=== PATIENT | female | born 1935 | race Caucasian/White ===

== ENCOUNTER 2016-05-24 17:48 | Emergency (ER) | payer MEDICARE, BC ==
--- NOTE | ~2016-05-24 | CR72 ---
[facility] A [facility] of [facility] RADIOLOGY TEXT RESULTS PATIENT: DM MAGALLON LOCATION: [facility] : 34 UNIT #: [id number] AGE: [address]: Lauren Lock MD SEX: F ORDER DR: [id number] [facility] [address] [place], [place] [address] [id number] E MR#: [id number] Acc #: [id number] NAME: DM MAGALLON : 1935 SEX: F STUDY DATE/TIME: 05/24/2016 17:23 UNIT: [facility] ROOM: STUDY DESCRIPTION: CR Chest Single View Portable Attending Physician: Lauren Lock M.D. Ordering Physician: Dorian Bearden M.D. Primary Care Physician: No Primary Care Physician MEDICAL IMAGING REPORT This report is preliminary unless electronic signature is present EXAM Portable chest 05/24 COMPARISON 02/04/2016 HISTORY Cough beginning today. FINDINGS An AP view of the chest obtained. The cardiac size is stable. Vascular pattern remains normal and the lungs are clear. CONCLUSION 1. Stable chest. No active disease. Dictated by... Rah Mcgill M.D. THIS IS AN ELECTRONICALLY VERIFIED REPORT Rah Mcgill M.D. at 05/25/2016 10:35 AM ЮЛИЯ/ermias TD: 05/24/2016 23:12 JOB #: [id number] MEDICAL IMAGING REPORT Page 1 of 1 COPY
--- NOTE | ~2016-05-24 | EKG ---
PATIENT: DM MAGALLON UNIT #: [id number] Ventricular Rate: 56 BPM Atrial Rate: 56 BPM P-R Interval: 192 ms QRS Duration: 102 ms Q-T Interval: 448 ms QTC Calculation(Bezet): 432 ms P [place]: 29 degrees Calculated R [place]: -6 degrees Calculated T [place]: 51 degrees Diagnosis Line: Sinus bradycardia Diagnosis Line: Septal infarct , age undetermined Diagnosis Line: Abnormal ECG Diagnosis Line: When compared with ECG of 18-FEB-2016 19:21, Diagnosis Line: Septal infarct is now Present Diagnosis Line: Confirmed by MO SCOTT MD ([id number]) on 05/26/2016 Diagnosis Line: 9:31:37 AM INTERPRETING MD: SONIA ARRIAGA
--- NOTE | ~2016-05-24 | CT17 ---
[facility] A Service of [facility] & [facility] RADIOLOGY TEXT RESULTS PATIENT: DM MAGALLON LOCATION: [facility] : 34 UNIT #: [id number] AGE: [address]: Lauren Lock MD SEX: F ORDER DR: [id number] [facility] [address] [place], [place] [address] [id number] E MR#: [id number] Acc #: [id number] NAME: DM MAGALLON : 1935 SEX: F STUDY DATE/TIME: 05/24/2016 19:11 UNIT: [facility] ROOM: STUDY DESCRIPTION: CT Angio Head Attending Physician: Lauren Lock M.D. Ordering Physician: Dorian Bearden M.D. Primary Care Physician: No Primary Care Physician MEDICAL IMAGING REPORT This report is preliminary unless electronic signature is present EXAM CT of the brain with CT angiography of the intracranial vasculature. HISTORY SUPPLIED Right eye blurred vision, pain, pressure after coughing. Symptoms since 05/23/2016. TECHNIQUE Transaxial imaging of the brain and skull base was performed with an IV bolus of contrast media. CT angiography was performed with 3-D MIP multiplanar reconstructions as well as 2-D and 3-D renderings of the skull base and intracranial vasculature. This CT exam was performed with one or more of the following radiation dose reduction techniques: automatic exposure control, adjustment of mA and/or kV according to patient size, and iterative reconstruction. FINDINGS There is mild atherosclerotic plaque in the carotid siphons. There is no evidence of significant carotid stenosis. The right A1 and left A1 segments are patent. The right side is somewhat smaller. There is symmetric filling of the middle cerebral artery territories. The right posterior cerebral is supplied by the anterior circulation. Patient has a patent [place] of [place]. Left posterior cerebral and right posterior cerebral fill symmetrically. Anterior cerebral artery fills symmetrically. No evidence of aneurysm. No evidence of vascular malformation. Posterior circulation is normal. No evidence of abrupt vascular cutoff. CONCLUSION Essentially normal CTA intracranially. Patient does have a hypoplastic right A1 segment, but it is patent. There is a patent [place] of [place] with persistent circulation of the right posterior cerebral. Exam is otherwise unremarkable. [facility] A Service of [facility] & [facility] RADIOLOGY TEXT RESULTS PATIENT: DM MAGALLON LOCATION: [facility] : 34 UNIT #: [id number] AGE: [address]: Lauren Lock MD SEX: F ORDER DR: Dictated by... Rah Mcgill M.D. THIS IS AN ELECTRONICALLY VERIFIED REPORT Rah Mcgill M.D. at 05/25/2016 10:35 AM Fanny TD: 05/25/2016 05:31 JOB #: [id number] MEDICAL IMAGING REPORT Page 1 of 1 COPY
--- NOTE | ~2016-05-24 | CT71 ---
[facility] A Service of [facility] RADIOLOGY TEXT RESULTS PATIENT: DM MAGALLON LOCATION: [facility] : 34 UNIT #: [id number] AGE: [address]: Lauren Lock MD SEX: F ORDER DR: [id number] [facility] [address] [place], [place] [address] [id number] E MR#: [id number] Acc #: [id number] NAME: DM MAGALLON : 1935 SEX: F STUDY DATE/TIME: 05/24/2016 19:05 UNIT: [facility] ROOM: STUDY DESCRIPTION: CT Head Wo Contrast Attending Physician: Lauren Lock M.D. Ordering Physician: Dorian Bearden M.D. Primary Care Physician: Primary Care Physician No MEDICAL IMAGING REPORT This report is preliminary unless electronic signature is present EXAM CT of the brain without contrast media, 05/24/2016 HISTORY Right eye pain and blurry vision beginning 05/23/2016. TECHNIQUE Transaxial imaging of the brain was performed without contrast media: This CT exam was performed with one or more of the following radiation dose reduction techniques: automatic exposure control, adjustment of mA and/or kV according to patient size, and iterative reconstruction. FINDINGS Ventricular size and configuration is normal. No intra or extraaxial mass lesions, fluid collections or mass effect are seen. No focal areas of low attenuation or hemorrhage are identified. There is atherosclerotic plaque in the carotid siphons. Bone windows are reviewed. There is some motion degradation. No fractures are identified. Globes appear symmetric. No retrobulbar masses or fluid collections are identified. CONCLUSION Age-appropriate atrophy. Atherosclerotic calcifications in the carotid siphons. Negative noncontrast CT of the brain. Dictated by... Rah Mcgill M.D. THIS IS AN ELECTRONICALLY VERIFIED REPORT Rah Mcgill M.D. at 05/25/2016 10:35 AM ЮЛИЯ/iglesia [facility] A Service of [facility] RADIOLOGY TEXT RESULTS PATIENT: SHERITA,OPAL LOCATION: [facility] : 34 UNIT #: [id number] AGE: [address]: Lauren Lock MD SEX: F ORDER DR: TD: 05/25/2016 04:24 JOB #: [id number] MEDICAL IMAGING REPORT Page 1 of 1 COPY
[2016-05-24 17:32] LABS: BASOPHIL% 0.3 % (0-2.5); DIFF IND NO; EOSINOPHIL# 0.2 X10e3 (0-0.7); EOSINOPHIL% 2.7 % (0.0-7.0); HEMATOCRIT 38.7 % (35.0-45.0); HEMOGLOBIN 12.4 gm/dL (12.0-16.0); LYMPHOCYTE# 2.1 X10e3 (1.0-3.5); LYMPHOCYTE% 30.7 % (17.0-45.0); MEAN CORPUSCULAR HEMOGLOBIN 27.5 PG (28-34); MEAN PLATELET VOLUME 8.5 FL (6.5-11.5); MONOCYTE# 0.7 X10e3 (0-1.0); MONOCYTE% 10.9 % (3.0-12.0); NEUTROPHIL# 3.7 X10e3 (1.5-7.1); NEUTROPHIL% 55.4 % (40-75); PLATELET COUNT 201 X10e3 (140-420); RED CELL DISTRIBUTION WIDTH 15.3 % (11.0-15.5); WHITE BLOOD COUNT 6.8 X10e3 (4.0-10.5)
[2016-05-24 17:46] LABS: INR 1.1; PROTHROMBIN TIME (PATIENT) 11.3 SECONDS (9.6-11.5)
[~2016-05-24 17:48] MED LIST: FIORINAL 50-321 EACH PO; LISINOPRIL20 MG PO; MOBIC15 MG PO; PERCOCET 5-3251 TAB PO
[2016-05-24 17:51] LABS: ALBUMIN SERUM 4.5 g/dL (3.5-5.0); ALKALINE PHOSPHATASE 70 U/L (32-92); ALT (SGPT) 6 U/L (10-40); AST (SGOT) 23 U/L (10-42); BLOOD UREA NITROGEN 31 mg/dL (9-23); BUN/CREATININE RATIO 34.44; CALCIUM SERUM 9.2 mg/dL (8.4-10.2); CARBON DIOXIDE 26 mmol/L (22-31); CHLORIDE 106 mmol/L (100-111); CREATININE SERUM 0.9 mg/dL (0.6-1.4); GLOM FILT RATE Estimated ABOVE60 mL/min (>60); GLUCOSE FASTING 93 mg/dL (70-110); POTASSIUM 4.2 mmol/L (3.5-5.1); PROTEIN TOTAL SERUM 7.6 g/dL (6.0-8.3); SODIUM 140 mmol/L (135-145)
[2016-05-24 17:57] LABS: POC - CKMB 3.2 ng/mL (0.0-7.9); POC - TROPONIN <0.05 ng/mL (<=0.05)
[2016-05-24 18:11] LABS: INFLUENZA A NEG (NEG); INFLUENZA B NEG (NEG)
== END 2016-05-24 22:03 | disposition home or self-care (01) ==
LOC: CED 17:48
PROVIDERS: Emergency Medicine
DX: H11.31 Conjunctival hemorrhage, right eye (principal)
CPT/HCPCS: 36415; 70450; 70496; 71010; 80053; 82553; 84484; 85025; 85610; 85730; 87804; 93005; 99284; Q9967

== ENCOUNTER → 2016-10-11 | Outpatient (CLI) | payer MEDICARE, BC ==
--- NOTE | ~2016-10-11 | CT4 ---
[facility] A Service of [facility] RADIOLOGY TEXT RESULTS PATIENT: DM MAGALLON LOCATION: [facility] : 34 UNIT #: [id number] AGE: [address]: JULIO ST SEX: F ORDER DR: [id number] [facility] [address] [place], [place] [address] [id number] O MR#: [id number] Acc #: [id number] NAME: DM MAGALLON : 1935 SEX: F STUDY DATE/TIME: 10/11/2016 12:19 UNIT: [facility] ROOM: STUDY DESCRIPTION: CT Abd and Pelv Wo Cont Attending Physician: Julio St M.D. Referring Physician: Julio St M.D. Ordering Physician: Physician Non-Staff Primary Care Physician: Julio St M.D. MEDICAL IMAGING REPORT This report is preliminary unless electronic signature is present EXAM CT of the abdomen and pelvis without contrast INDICATION Recurrent nephrolithiasis. The patient does have a history of kidney stones. She reports right flank pain for [address] images were obtained from the dome of the diaphragm through the symphysis pubis. No oral or intravenous contrast material was administered. This CT exam was performed with one or more of the following radiation dose reduction techniques: automatic exposure control, adjustment of mA and/or kV according to patient size, and iterative reconstruction. FINDINGS The patient is noted have some stable scarring within the right middle lobe. Stomach and proximal small bowel are within normal limits as are the adrenal glands, spleen and liver. Pancreas is mildly atrophic. There is some higher density material seen within the gallbladder. It does not layer dependently and I am uncertain if this reflects some stone or sludge. It was present in February 2016 and at that time the patient underwent gallbladder ultrasound which showed no evidence of a mass within the gallbladder. No renal stones are identified on the right. The patient does have a cyst within the right kidney. There is dilatation of the right renal pelvis without benton hydronephrosis and it may simply reflect a prominent extrarenal pelvis. The appearance however is stable when compared to February 2016. Left renal cysts are also identified. I am not convinced I can see any urinary stones on either side. No distal STS. [facility] A Service of [facility] & [facility] RADIOLOGY TEXT RESULTS PATIENT: DM MAGALLON LOCATION: [facility] : 34 UNIT #: [id number] AGE: [address]: JULIO ST SEX: F ORDER DR: ureteral or bladder stones are seen. no free fluid or adenopathy is seen within the abdomen. There is no evidence of mechanical bowel obstruction. The uterus is surgically absent, the urinary bladder appears unremarkable. There is some colonic diverticula wop any convincing evidence of diverticulitis. The patient does have some mild stranding seen within the right paracolic gutter and right lower quadrant omentum. This is of uncertain clinical significance. Adjacent bowel does not appear particularly thick-walled. I am unable to identify the patient's appendix and I do not see a dilated tubular structure within this area to suggest acute appendicitis. No aggressive osseous abnormalities are seen. IMPRESSION 1. No urinary stones are identified. No distal ureteral or bladder stones are seen. There is no hydronephrosis. The patient has a mildly prominent extrarenal pelvis on the right but again, there is no evidence of hydronephrosis. 2. Bilateral renal cysts. 3. The patient has some ill-defined stranding seen within the omentum in the right lower quadrant. Finding is nonspecific and may reflect some mild inflammation of the mesentery in this area. Segmental omental infarction could also have this appearance. The adjacent bowel does not appear thick-walled. The patient's a[x is not visualized but I do not see a dilated tubular structure within the right lower quadrant to suggest acute appendicitis. 4. High-density material identified within the gallbladder. This does not layer dependently but the patient did undergo a gallbladder ultrasound which showed a large shadowing stone within the gallbladder. 5. Scattered colonic diverticula without convincing evidence of diverticulitis. 6. Please see the body of the report for any other additional incidental findings. Dictated by... Lisa Coombs M.D. THIS IS AN ELECTRONICALLY VERIFIED REPORT Lisa Coombs M.D. at 10/12/2016 5:26 PM IQRA/ilgesia TD: 10/12/2016 00:30 JOB #: [id number] MEDICAL IMAGING REPORT Page 1 of 1 COPY
== END | disposition home or self-care (01) ==
LOC: CCAT 11:42
DX: N20.0 Calculus of kidney (principal); N28.1 Cyst of kidney, acquired; K57.30 Diverticulosis of large intestine without perforation or abscess without bleeding
CPT/HCPCS: 74176